=== PATIENT | female | born 1945 | race Caucasian/White ===

== ENCOUNTER 2024-01-02 17:50 | Emergency (ER) | payer MEDICAID ==
[2024-01-02] MEDS ORDERED: NA CHLORIDE 0.9% 1,000 ML ONE (19:16)
[2024-01-02 19:48] LABS: Absolute Basophils 0.1 K/uL (0-0.5); Absolute Eosinophils 0.1 K/uL (0-0.5); Absolute Lymphocytes (CBC) 1.2 K/uL (0.7-4.9); Absolute Monocytes 0.9 K/uL (0.1-1.3); Absolute Neutrophil 4.3 K/uL (1.8-8.0); Basophils % 0.9 % (0-1.3); Hemoglobin 10.9 g/dL (12.0-15.0); Lymphocytes % 18.2 % (15.3-44.8); MCH 31.9 pg (27.0-35.0); MCV 93.7 fL (80-100); MPV 8.3 fL (7.6-11.3); Monocytes % 13.4 % (3.3-12.3); Neutrophils % 65.5 % (41.7-73.7); Nucleated Red Blood Cells % 0.1 % (0-0); Platelets 162 thou/uL (152-406); RBC Red Blood Cell Count 3.42 M/uL (3.86-4.86); Red Cell Distribution Width 13.9 % (12.1-15.2)
--- NOTE | 2024-01-02 19:51 | RAD REPORT ---
Exam:Femur Right CLINICAL HISTORY: Right leg pain. FINDINGS: Mildly displaced fracture medial aspect distal femur. Additional lucency within the distal femur betw een the 2 condyles extends to the articular surface equivocal for additional or extension of the fracture. CT may be helpful for further evaluation
[2024-01-02 19:55] LABS: PT Prothrombin Time 40.6 SECONDS (9.4-12.5); PTT, Activated Partial Thromb 35.1 SECONDS (24.3-36.9); Protime INR 3.77
[2024-01-02 20:06] LABS: Anion Gap 7.7 mEq/L (5.0-15.0); Potassium 4.7 mEq/L (3.5-5.1)
--- NOTE | 2024-01-02 20:12 | EDPHYS ---
Physician Documentation [facility] Name: Chaparrita Damon Age: 78 yrs Sex: Female : 1945 Arrival Date: 01/02/2024 Time: 17:50 Bed 2 Private MD: ED Physician Paulie Meyers HPI: 01/01 19:51 This 78 yrs old Female presents to ER via EMS with complaints of Leg Pain. rn 19:51 The patient presents with pain, that is acute. The complaints affect the right knee. rn Onset: The symptoms/episode began/occurred 5 day(s) ago. Modifying factors: The symptoms are alleviated by nothing. the symptoms are aggravated by movement. Severity of symptoms: At their worst the symptoms were moderate, in the emergency department the symptoms are unchanged. The patient has not experienced similar symptoms in the past. Patient and family report fall on Sunday, seen at [place] emergency room and had MRI lower back that showed contusion and soft tissue injury. X-ray of the femur showed distal femur fracture with intra-articular extension and lipohemarthrosis per discharge paperwork. Their orthopedist was not in network for follow-up so came will be here to try to get plugged into our system. Still having right knee pain and thigh pain. No new injury. Has been in knee immobilizer since then. Denies shortness of breath. Family concerned because has dark urine and not eating or drinking much. Patient states feels dehydrated and [place].. Historical: - Allergies: 17:59 Amiodarone; bp 17:59 Aspirin; bp 17:59 Iodine; bp - Immunization history:: Adult Immunizations up to date. - Infectious Disease History:: Denies. - Social history:: Smoking status: . - Family history:: not pertinent. - Hospitalizations: : No recent hospitalization is reported. ROS: 19:51 Constitutional: Negative for fever, chills, and weight loss, Neck: Negative for injury, rn pain, and swelling, Cardiovascular: Negative for chest pain, palpitations, and edema, Respiratory: Negative for shortness of breath, cough, wheezing, and pleuritic chest pain, Abdomen/GI: Negative for abdominal pain, nausea, vomiting, diarrhea, and constipation, MS/Extremity: Positive for right leg pain and injury Neuro: Negative for headache, weakness, numbness, tingling, and seizure, Exam: 19:51 Constitutional: This is a well developed, well nourished patient who is awake, alert, rn and in no acute distress. ENT: Dry mucous membranes Cardiovascular: Tachycardic, regular Respiratory: Speaking full sentences, unlabored. No increased work of breathing, no retractions or nasal flaring. Abdomen/GI: Soft, non-tender MS/ Extremity: Distal femur tenderness. No patellar tenderness or gross abnormality. Healing ecchymosis distal right thigh. Neuro: Awake and alert, GCS 15 Vital Signs: 17:57 BP 99 / 51; Pulse 120; Resp 20; Temp 98; Pulse Ox 98% ; bp 19:10 BP 106 / 58; Pulse 102; Resp 18; Pulse Ox 98% on R/A; kj2 19:56 BP 116 / 97; Pulse 104; Resp 20; kj2 20:16 Weight 56.7 kg; Height 5 ft. 8 in. ; ty 20:35 BP 166 / 88; Pulse 100; Resp 20; Temp 98(O); Pulse Ox 100% ; kj2 20:16 Body Mass Index 19.01 (56.70 kg, 172.72 cm) ty MDM: 18:14 Medical Screening Exam initiated rn 20:07 Differential diagnosis: closed fracture, contusion. Data reviewed: vital signs, nurses rn notes, radiologic studies, plain films, and as a result, I will admit patient. Consideration of Admission/Observation Patient was admitted/placed on observation. Escalation of care including admission/observation considered. Counseling: I had a detailed discussion with the patient and/or guardian regarding the historical points, exam findings, and any diagnostic results supporting the discharge/admit diagnosis, lab results, radiology results, the need to transfer to another facility, [facility] does not immediately have the required specialist. Response to treatment: the patient's symptoms have mildly improved after treatment, and as a result, I will admit patient. ED course: Patient with distal femur fracture, mild displacement, intra-articular extension. Patient also with elevated INR, on Coumadin. Hemoglobin 10.9, vitals improving after IV fluids perhaps just dehydrated. Will transfer to [place] for orthopedic evaluation as we do not have Ortho on-call here.. 01/01 19:50 Order name: CBC with Automated Diff; Complete Time: 19:51 EDMS 01/01 19:56 Order name: Protime (+INR); Complete Time: 19:56 EDMS 01/01 20:03 Interpretation: Abnormal. rn 01/01 19:56 Order name: PTT, Activated Partial Thromb; Complete Time: 19:56 EDMS 01/01 20:06 Order name: Basic Metabolic Panel; Complete Time: 20:11 EDMS 01/01 20:57 Order name: Urinalysis w/ reflexes EDMS 01/01 19:52 Order name: RAD; Complete Time: 19:56 EDMS 01/01 18:52 Order name: IV Start; Complete Time: 19:02 rn Administered Medications: 19:39 Drug: NS 0.9% IV 1000 ml IV at 1000 ml once; to be given as a bolus over 60 minutes kj2 Route: IV; Rate: 1000 ml; Site: left antecubital; 19:39 Follow up: IV Status: Completed infusion; IV Intake: 1000ml kj2 21:19 Follow up: Response: No adverse reaction kj2 21:21 Follow up: IV Status: Completed infusion kj2 21:41 Drug: HYDROmorphone IVP 1 mg IVP once Route: IVP; Site: left antecubital; cp4 21:41 Follow up: Response: No adverse reaction cp4 21:41 Drug: Ondansetron IVP 4 mg IVP once; over 2 minutes Route: IVP; Site: left antecubital; cp4 21:41 Follow up: Response: No adverse reaction cp4 Disposition Summary: 01/02/24 20:11 Transfer Ordered Notes: Transfer Location: [facility] rn Reason: Higher level of care rn Condition: Stable rn Problem: new rn Symptoms: are unchanged rn Accepting Physician: (01/02/24 22:13) cp4 Diagnosis - Displaced distal femur fracture with intra-articular extension rn - supratherapeutic INR rn Forms: - Medication Reconciliation Form rn - SBAR form rn Signatures: Dispatcher [employer] EDMS Roel Moralez MD MD rn Peltier, Brian, RN Paulie Scott MD MD sp4 Manisha Bernabe cp4 Justyna Arthur RN RN kj2 Corrections: (The following items were deleted from the chart) 18:53 18:53 CBC+H.LAB.BRZ ordered. EDMS EDMS 18:53 18:53 BASIC METABOLIC PANEL+C.LAB.BRZ ordered. EDMS EDMS 18:53 18:53 PROTIME (+INR)+COAG.LAB.BRZ ordered. EDMS EDMS 18:53 18:53 PTT, ACTIVATED+COAG.LAB.BRZ ordered. EDMS EDMS 18:53 18:53 Urinalysis+U.LAB.BRZ ordered. EDMS EDMS 18:53 18:53 Femur Right+RAD.RAD.BRZ ordered. EDMS EDMS 21:21 20:11 rn kj2 22:13 21:21 kj2 cp4
--- NOTE | 2024-01-02 20:12 | ER ---
Nurse's Notes [facility] Name: Chaparrita Damon Age: 78 yrs Sex: Female : 1945 Arrival Date: 01/02/2024 Time: 17:50 Bed 2 Private MD: Diagnosis: Displaced distal femur fracture with intra-articular extension;supratherapeutic INR Presentation: 01/01 17:57 Chief complaint: EMS states: "SHE FELL AND WAS SEEN AT [facility] A WEEK AGO bp AND GOT A PATELLA FRACTURE. SHE'S BASICALLY HERE TO GET MORE IMAGING SO SHE CAN GET AN ORTHO DOWN HERE.". Coronavirus screen: At this time, the client does not indicate any symptoms associated with coronavirus-19. Ebola Screen: No symptoms or risks identified at this time. Initial Sepsis Screen: Does the patient meet any 2 criteria? No. Patient's initial sepsis screen is negative. Does the patient have a suspected source of infection? No. Patient's initial sepsis screen is negative. Risk Assessment: Do you want to hurt yourself or someone else? Patient reports no desire to harm self or others. Onset of symptoms is unknown. Care prior to arrival: Medication(s) given: MORPHINE 4 MG IV initiated. 20 GA, in the left forearm. 17:57 Method Of Arrival: EMS: [facility] bp 17:57 Acuity: NII 3 bp Triage Assessment: 17:59 General: Appears in no apparent distress. Behavior is calm, cooperative, appropriate bp for age. Pain: Complains of pain in back. EENT: No deficits noted. Neuro: No deficits noted. Cardiovascular: No deficits noted. Respiratory: No deficits noted. GI: No signs and/or symptoms were reported involving the gastrointestinal system. : No signs and/or symptoms were reported regarding the genitourinary system. Derm: No deficits noted. Musculoskeletal: R KNEE IMMOBILIZER. Historical: - Allergies: 17:59 Amiodarone; bp 17:59 Aspirin; bp 17:59 Iodine; bp - Immunization history:: Adult Immunizations up to date. - Infectious Disease History:: Denies. - Social history:: Smoking status: . - Family history:: not pertinent. - Hospitalizations: : No recent hospitalization is reported. Screenin:51 [facility] ED Fall Risk Assessment (Adult) History of falling in the last 3 months, hb including since admission Yes- single mechanical fall (1 pt) Confusion or Disorientation No (0 pts) Intoxicated or Sedated No (0 pts) Impaired Gait Yes (1 pt) Mobility Assist Device Used Yes (1 pt) Altered Elimination No (0 pt) Score/Fall Risk Level 3 or more points = High Risk Oriented to surroundings, Maintained a safe environment, Educated pt \\T\\ family on fall prevention, incl call for assistance when getting out of bed, Assessed \\T\\ reinforced patient's understanding of fall precautions. Abuse screen: Denies threats or abuse. Denies injuries from another. Nutritional screening: No deficits noted. Tuberculosis screening: No symptoms or risk factors identified. Assessment: 18:50 General: Appears in no apparent distress. Behavior is calm, cooperative. Pain: Pain hb currently is 6 out of 10 on a pain scale. Neuro: GCS 15. Cardiovascular: Patient's skin is warm and dry. Respiratory: Respiratory effort is even, unlabored, Respiratory pattern is regular, symmetrical. 19:05 Reassessment: Patient appears in no apparent distress at this time. kj2 19:55 Reassessment: Patient appears in no apparent distress at this time. Patient and/or kj2 family updated on plan of care and expected duration. Pain level reassessed. Vital Signs: 17:57 BP 99 / 51; Pulse 120; Resp 20; Temp 98; Pulse Ox 98% ; bp 19:10 BP 106 / 58; Pulse 102; Resp 18; Pulse Ox 98% on R/A; kj2 19:56 BP 116 / 97; Pulse 104; Resp 20; kj2 20:16 Weight 56.7 kg; Height 5 ft. 8 in. ; ty 20:35 BP 166 / 88; Pulse 100; Resp 20; Temp 98(O); Pulse Ox 100% ; kj2 20:16 Body Mass Index 19.01 (56.70 kg, 172.72 cm) ty ED Course: 17:54 Patient arrived in ED. bd 17:57 Gustavo Caceres, RN is Primary Nurse. bp 17:59 Triage completed. bp 17:59 Arm band placed on. bp 18:00 Maintain EMS IV. Dressing intact. Good blood return noted. Site clean \\T\\ dry. Gauge \\T\\ bp site: 20 LEFT FA. 18:02 Patient has correct armband on for positive identification. Placed in gown. Bed in low hb position. Call light in reach. Provided Education on: USE OF CALL LIGHT . 18:14 Roel Moralez MD is Attending Physician. rn 19:00 Report received from MANUEL Chen. kj2 19:40 Initial lab(s) drawn. kj2 20:03 [facility] called to initiate patient transfer, spoke with franca. ty 20:17 [facility] will call back with [id number] once doctor is available. ty 21:20 Patient transferred, IV remains in place. kj2 21:20 No provider procedures requiring assistance completed. kj2 21:28 Attending Physician role handed off by Roel Moralez MD vc1 21:33 Paulie Meyers MD is Attending Physician. sp4 Administered Medications: 19:39 Drug: NS 0.9% IV 1000 ml IV at 1000 ml once; to be given as a bolus over 60 minutes kj2 Route: IV; Rate: 1000 ml; Site: left antecubital; 19:39 Follow up: IV Status: Completed infusion; IV Intake: 1000ml kj2 21:19 Follow up: Response: No adverse reaction kj2 21:21 Follow up: IV Status: Completed infusion kj2 21:41 Drug: HYDROmorphone IVP 1 mg IVP once Route: IVP; Site: left antecubital; cp4 21:41 Follow up: Response: No adverse reaction cp4 21:41 Drug: Ondansetron IVP 4 mg IVP once; over 2 minutes Route: IVP; Site: left antecubital; cp4 21:41 Follow up: Response: No adverse reaction cp4 Medication: 18:51 VIS not applicable for this client. hb Intake: 19:39 IV: 1000ml; Total: 1000ml. kj2 Outcome: 20:11 ER care complete, transfer ordered by MD. rn 21:19 Transferred by ground EMS to [facility], kj2 21:19 Condition: stable 21:19 Instructed on the need for transfer, Demonstrated understanding of instructions, follow-up care, 21:21 Patient left the ED. kj2 22:13 Patient left the ED. cp4 Signatures: Brea Serra Roman, MD MD rn Baxter, Heather, RN RN hb Peltier, Brian, RN RN bp Calcote, Vanessa, RN RN vc1 Paulie Meyers MD MD sp4 Manisha Bernabe cp4 Kush Lawrence Krystal RN RN kj2 Corrections: (The following items were deleted from the chart) 20:07 20:03 [facility] called to initiate patient transfer, spoke with lazaro ty
[2024-01-02 20:50] LABS: Sqamous Epithelial <5 /HPF (None Seen); Urine Bacteria <20 /HPF (<20); Urine Culture Reflex Order REFLEXED; Urine Microscopic Reflex YN ORDER UMIC; Urine Mucus Slight /HPF (None Seen); Urine WBC >50 /HPF (<5)
[2024-01-02 20:56] LABS: Urine Bilirubin Negative (Negative); Urine Blood Negative (Negative); Urine Clarity Slightly Cloudy (Clear); Urine Color Yellow (Yellow); Urine Glucose Negative (Negative); Urine Ketones Negative (Negative); Urine Protein Negative (Negative); Urine Urobilinogen Normal (Normal)
[2024-01-02 20:57] LABS: Urine Nitrite Negative (Negative)
[2024-01-02] MEDS ORDERED: ONDANSETRON 4 MG/2 ML VIAL ONE (21:38)
[2024-01-02] MEDS ORDERED: HYDROMORPHONE HCL 1 MG/ML INJ ONE (21:38)
[2024-01-03 06:27] VITALS: TEMP 98
[2024-01-03 06:34] VITALS: BP 166/88; O2SAT 100
== END 2024-01-02 22:13 | disposition short-term general hospital (02) ==
LOC: ER 17:50
DX: S72.491A Other fracture of lower end of right femur, initial encounter for closed fracture (principal); R79.1 Abnormal coagulation profile; W18.30XA Fall on same level, unspecified, initial encounter
CPT/HCPCS: 87088; 85025; 81001; 87086; 80048; 36415; 85610; 85730; 73552; J1170; J2405; J7030